=== PATIENT | male | born 1970 | race Hispanic/Latino ===

== ENCOUNTER 2020-07-26 10:51 | Inpatient (IN) | payer BC, OTHER, SELFPAY ==
[2020-07-26 12:04] LABS: ALT (SGPT) 188 U/L (8-55); AST (SGOT) 121 U/L (5-34); Albumin 3.3 g/dL (3.5-5.0); Alkaline Phosphatase 161 U/L (40-110); Anion Gap 19 mmol/L (10-20); BUN (Urea Nitrogen) 9 mg/dL (8.9-20.6); Calc. Creatinine Clearance 0 mL/min (70-130); Calcium 9.4 mg/dL (7.8-10.44); Carbon Dioxide 21 mmol/L (22-29); Chloride 98 mmol/L (98-107); Globulin 2.5 g/dL (2.4-3.5); Glucose 95 mg/dL (70-105); Lipase 48 U/L (8-78); Protein, Total 5.8 g/dL (6.0-8.3); Sodium 135 mmol/L (136-145)
[2020-07-26 12:11] LABS: #Eosinphils 0.1 10x3/uL (0.0-0.5); #Monocytes 1.1 10x3/uL (0.0-1.1); #Neutrophils 5.2 10x3/uL (1.5-8.4); %Basophils 0.4 % (0.0-2.0); %Eosinophils 1.1 % (0.0-6.0); %Monocytes 14.6 % (0.0-10.0); Hemoglobin 13.5 g/dL (13.5-17.5); Mean Corpuscular Hemoglobin 34.1 pg (27.0-33.0); Mean Corpuscular Volume 94.7 fl (81.2-95.1); Mean Platelet Volume 10.5 fl (7.4-10.4); Platelet Count 73 10x3/uL (150-450); RBC Distribution Width 17.2 % (11.5-14.5); Red Blood Cell (RBC) Count 3.96 10x6/uL (4.32-5.72); White Blood Cell (WBC) Count 7.6 10x3/uL (3.5-10.5)
[2020-07-26 12:12] LABS: Bilirubin, Total 25.6 mg/dL (0.2-1.2)
[2020-07-26 12:18] LABS: Bilirubin 6 (Negative); Blood, Urine 150 (Negative); Clarity Slightly Cloudy (Clear); Glucose, Urine (Dipstick) Normal (Negative); Ketone, Urine 15 mg/dL (Negative); Leukocyte 25 (Negative); Nitrite Positive (Negative); Protein, Urine (Dipstick) 30 mg/dl (Neg-Trace); Specific Gravity, Urine 1.015 (1.002-1.036); Urobilinogen 12 mg/dL (Less than 2); pH, Urine 6.5 (5.0-9.0)
[2020-07-26 12:32] LABS: Bacteria/HPF 3+ HPF (None Seen)
[2020-07-26 12:35] LABS: Platelet Morphology Comment Appears Decreased
[2020-07-26 12:36] LABS: RBC Morphology Normal
[2020-07-26] MEDS ORDERED: Ondansetron PF 4 MG/2 ML Vial ONE (12:49)
[2020-07-26] MEDS ORDERED: Morphine 4 MG/ML VIAL ONE (12:49)
[2020-07-26] MEDS ORDERED: cefTRIAXone\\ROCEPHIN 2 GM VIAL ONE (14:26)
[2020-07-26 15:49] LABS: Lactic Acid 1.9 mmol/L (0.5-2.2)
[2020-07-26 16:37] VITALS: BMI 40.4
[2020-07-26 16:56] LABS: INR-International Normal Ratio 1.9; PTT 33.4 sec (22.0-33.0); Prothrombin Time 20.8 sec (9.5-12.1)
[2020-07-26] MEDS ORDERED: Furosemide 40 MG/4 ML VIAL SLOW IVP SCH (17:00)
[2020-07-26] MEDS ORDERED: Potassium Chloride 10 MEQ in Premix Bag 1 BAG IVPB SCH (17:30)
[2020-07-26] MEDS: NS 0.9% w/ 20 MEQ KCL 1,000 ML/1,000 ML BAG IV SCH (17:38)
[2020-07-26] MEDS: Morphine 4 MG/ML VIAL SLOW IVP PRN (17:39)
[2020-07-26 19:45] LABS: Bilirubin, Total 25.7 mg/dL (0.2-1.2)
[2020-07-26 20:19] LABS: Bilirubin, Direct 18.9 mg/dL (0.1-0.3)
[2020-07-26] MEDS: Famotidine/PF 20 mg/2ml Vial SLOW IVP SCH (20:39)
[2020-07-27] MEDS: NS 0.9% w/ 20 MEQ KCL 1,000 ML/1,000 ML BAG IV SCH ×3 (00:57→16:36)
[2020-07-27 04:08] LABS: HBCM Index 0.07 S/CO (0-0.79); Hep A IgM AB Non-Reactive (NonReactive); Hep A IgM S/CO 0.55 S/CO (0-0.79); Hep B Surf Ag Non-Reactive S/CO (NonReactive); Hep C IgG Ab Non-Reactive (NonReactive); Hep C Index 0.39 S/CO (0-0.79); Hepatitis B Core IgM Abs Non-Reactive (NonReactive)
[2020-07-27 04:13] LABS: SARS-CoV-2 PCR by NAA Not Detected (NotDetected)
[2020-07-27 04:36] LABS: #Eosinphils 0.1 10x3/uL (0.0-0.5); #Monocytes 1.2 10x3/uL (0.0-1.1); #Neutrophils 5.7 10x3/uL (1.5-8.4); %Basophils 0.4 % (0.0-2.0); %Eosinophils 1.7 % (0.0-6.0); %Lymphocytes 11.5 % (18.0-47.0); %Monocytes 14.4 % (0.0-10.0); %Neutrophils 70.9 % (40.0-75.0); Hemoglobin 11.5 g/dL (13.5-17.5); Mean Corpuscular HGB CONC 34.8 g/dL (32.0-36.0); Mean Corpuscular Hemoglobin 33.5 pg (27.0-33.0); Mean Corpuscular Volume 96.2 fl (81.2-95.1); Mean Platelet Volume 10.3 fl (7.4-10.4); Platelet Count 68 10x3/uL (150-450); RBC Distribution Width 17.6 % (11.5-14.5); Red Blood Cell (RBC) Count 3.43 10x6/uL (4.32-5.72); White Blood Cell (WBC) Count 8.1 10x3/uL (3.5-10.5)
[2020-07-27 04:54] LABS: Iron Binding Capacity, Total 164 mcg/dL (261-462)
[2020-07-27 04:56] LABS: Iron 83 ug/dL (65-175)
[2020-07-27 04:57] LABS: Anion Gap 14 mmol/L (10-20)
[2020-07-27 05:07] LABS: ALT (SGPT) 144 U/L (8-55); AST (SGOT) 93 U/L (5-34); Albumin 2.7 g/dL (3.5-5.0); Alkaline Phosphatase 135 U/L (40-110); BUN (Urea Nitrogen) 9 mg/dL (8.9-20.6); Bilirubin, Total 23.7 mg/dL (0.2-1.2); Calc. Creatinine Clearance 205 mL/min (70-130); Calcium 7.7 mg/dL (7.8-10.44); Carbon Dioxide 20 mmol/L (22-29); Chloride 103 mmol/L (98-107); Glucose 111 mg/dL (70-105); Potassium 3.1 mmol/L (3.5-5.1); Protein, Total 4.7 g/dL (6.0-8.3); Sodium 134 mmol/L (136-145)
[2020-07-27 05:40] LABS: INR-International Normal Ratio 1.9
[2020-07-27] MEDS: Famotidine/PF 20 mg/2ml Vial SLOW IVP SCH ×2 (08:14→20:06)
[2020-07-27] MEDS: Ondansetron PF 4 MG/2 ML Vial IVP PRN ×2 (08:14→16:37)
[2020-07-27] MEDS ORDERED: Potassium Chloride 20 MEQ TAB PO SCH (08:30)
[2020-07-27] MEDS: cefTRIAXone\\ROCEPHIN 1 GM in Sodium Chloride 0.9% 100 ML IVPB SCH (14:23)
[2020-07-27] MEDS ORDERED: prednisoLONE 15 MG/5 ML UDCUP ONE (20:56)
[2020-07-27] MEDS ORDERED: Pseudoephedrine HCl 30 MG TAB PO SCH (21:00)
[2020-07-27] MEDS: prednisoLONE 15 MG/5 ML UDCUP PO SCH (21:01)
[2020-07-28] MEDS: NS 0.9% w/ 20 MEQ KCL 1,000 ML/1,000 ML BAG IV SCH ×3 (00:44→17:41)
[2020-07-28] MEDS ORDERED: Famotidine/PF 20 mg/2ml Vial ONE (09:04)
[2020-07-28] MEDS: Ondansetron PF 4 MG/2 ML Vial IVP PRN ×3 (09:05→17:42)
[2020-07-28] MEDS: Famotidine/PF 20 mg/2ml Vial SLOW IVP SCH ×2 (09:06→20:03)
[2020-07-28] MEDS ORDERED: Polyethylene Glycol 3350 17 GM Packet PO SCH (10:00)
[2020-07-28] MEDS ORDERED: Senokot S 8.6-50 MG TAB PO SCH (10:00)
[2020-07-28] MEDS: cefTRIAXone\\ROCEPHIN 1 GM in Sodium Chloride 0.9% 100 ML IVPB SCH (15:29)
[2020-07-28 15:37] LABS: ANA Symphony (Qualitative) Negative (Negative); ANA Symphony (Quantitative) 0.1 Ratio (< 0.7 Negative); EliA Vaculitis New Method **** NEW METHOD ****; Mitochondrial Ab 0.7 U/mL (<4 Negative); dsDNA IgG Antibody Less than 0.5 IU/mL (<10 Negative)
[2020-07-28] MEDS: Morphine 4 MG/ML VIAL SLOW IVP PRN (18:02)
[2020-07-28] MEDS: prednisoLONE 15 MG/5 ML UDCUP PO SCH (20:04)
[2020-07-28] MEDS: Senokot S 8.6-50 MG TAB PO SCH (20:04)
[2020-07-29] MEDS: NS 0.9% w/ 20 MEQ KCL 1,000 ML/1,000 ML BAG IV SCH ×2 (02:29→10:56)
[2020-07-29 05:40] LABS: #Monocytes 0.5 10x3/uL (0.0-1.1); #Neutrophils 4.5 10x3/uL (1.5-8.4); %Basophils 0.3 % (0.0-2.0); %Lymphocytes 11.7 % (18.0-47.0); %Neutrophils 77.9 % (40.0-75.0); Hemoglobin 11.7 g/dL (13.5-17.5); Mean Corpuscular HGB CONC 35.5 g/dL (32.0-36.0); Mean Corpuscular Hemoglobin 33.7 pg (27.0-33.0); Mean Corpuscular Volume 95.1 fl (81.2-95.1); Mean Platelet Volume 10.5 fl (7.4-10.4); Platelet Count 78 10x3/uL (150-450); RBC Distribution Width 17.8 % (11.5-14.5); Red Blood Cell (RBC) Count 3.47 10x6/uL (4.32-5.72); White Blood Cell (WBC) Count 5.7 10x3/uL (3.5-10.5)
[2020-07-29 05:54] LABS: ALT (SGPT) 112 U/L (8-55); AST (SGOT) 81 U/L (5-34); Albumin 2.6 g/dL (3.5-5.0); Alkaline Phosphatase 170 U/L (40-110); Anion Gap 13 mmol/L (10-20); BUN (Urea Nitrogen) 8 mg/dL (8.9-20.6); Calc. Creatinine Clearance 218 mL/min (70-130); Calcium 7.8 mg/dL (7.8-10.44); Carbon Dioxide 18 mmol/L (22-29); Chloride 108 mmol/L (98-107); Globulin 1.9 g/dL (2.4-3.5); Glucose 120 mg/dL (70-105); Potassium 4.3 mmol/L (3.5-5.1); Protein, Total 4.5 g/dL (6.0-8.3); Sodium 135 mmol/L (136-145)
[2020-07-29 06:01] LABS: INR-International Normal Ratio 1.7; Prothrombin Time 18.7 sec (9.5-12.1)
[2020-07-29 06:02] LABS: Bilirubin, Total 26.1 mg/dL (0.2-1.2)
[2020-07-29] MEDS: Polyethylene Glycol 3350 17 GM Packet PO SCH (08:49)
[2020-07-29] MEDS: Ondansetron PF 4 MG/2 ML Vial IVP PRN (08:50)
[2020-07-29] MEDS: Famotidine/PF 20 mg/2ml Vial SLOW IVP SCH (08:50)
[2020-07-29] MEDS: Senokot S 8.6-50 MG TAB PO SCH ×2 (08:50→21:07)
[2020-07-29] MEDS ORDERED: Furosemide 40 MG/4 ML VIAL SLOW IVP SCH (10:15)
[2020-07-29] MEDS: Furosemide 40 MG/4 ML VIAL SLOW IVP SCH ×2 (13:35→13:43)
[2020-07-29] MEDS ORDERED: Loratadine 10 MG TAB PO SCH (16:15)
[2020-07-29] MEDS: Famotidine 20 MG TAB PO SCH (21:07)
[2020-07-29] MEDS: Enoxaparin Sodium 40 MG/0.4 ML SYRINGE SC SCH ×2 (21:07→21:11)
[2020-07-29] MEDS ORDERED: Melatonin 3 MG TAB PO SCH (21:30)
[2020-07-29] MEDS ORDERED: prednisoLONE 15 MG/5 ML UDCUP ONE (21:41)
[2020-07-29] MEDS: prednisoLONE 15 MG/5 ML UDCUP PO SCH (21:53)
[2020-07-30 05:27] LABS: Anion Gap 14 mmol/L (10-20); Globulin 1.9 g/dL (2.4-3.5)
[2020-07-30 05:35] LABS: Bilirubin, Total 28.2 mg/dL (0.2-1.2)
[2020-07-30 05:36] LABS: ALT (SGPT) 102 U/L (8-55); AST (SGOT) 79 U/L (5-34); Albumin 2.6 g/dL (3.5-5.0); Alkaline Phosphatase 155 U/L (40-110); BUN (Urea Nitrogen) 11 mg/dL (8.9-20.6); Calc. Creatinine Clearance 205 mL/min (70-130); Carbon Dioxide 20 mmol/L (22-29); Chloride 105 mmol/L (98-107); Glucose 114 mg/dL (70-105); Potassium 3.6 mmol/L (3.5-5.1); Protein, Total 4.5 g/dL (6.0-8.3); Sodium 135 mmol/L (136-145)
[2020-07-30] MEDS ORDERED: Loratadine 10 MG TAB PO SCH ×2 (09:00)
[2020-07-30] MEDS: Senokot S 8.6-50 MG TAB PO SCH (09:57)
[2020-07-30] MEDS: Polyethylene Glycol 3350 17 GM Packet PO SCH (10:01)
[2020-07-30] MEDS: Famotidine 20 MG TAB PO SCH (10:01)
[2020-07-30] MEDS: Ondansetron PF 4 MG/2 ML Vial IVP PRN (11:59)
[2020-07-30 12:22] VITALS: BP 123/69; TEMP 97.6
[2020-07-30] MEDS: Furosemide 40 MG/4 ML VIAL SLOW IVP SCH (14:19)
== END 2020-07-30 15:55 | disposition home or self-care (01) | DRG 433 ==
LOC: CSHERS 10:51 → CSHTELE 15:35
PROVIDERS: ADMIT Emergency Medicine; ATTEND Hospitalist
DX: K70.10 Alcoholic hepatitis without ascites (principal); Z68.41 Body mass index [BMI] 40.0-44.9, adult; J98.11 Atelectasis; K76.6 Portal hypertension; I85.10 Secondary esophageal varices without bleeding; R18.8 Other ascites; N30.01 Acute cystitis with hematuria; K74.60 Unspecified cirrhosis of liver; E66.9 Obesity, unspecified; E03.9 Hypothyroidism, unspecified; I10 Essential (primary) hypertension; F10.20 Alcohol dependence, uncomplicated; K80.80 Other cholelithiasis without obstruction; K70.0 Alcoholic fatty liver; R16.1 Splenomegaly, not elsewhere classified; E87.6 Hypokalemia; D69.6 Thrombocytopenia, unspecified; K21.9 Gastro-esophageal reflux disease without esophagitis; Z20.822 Contact with and (suspected) exposure to COVID-19
CPT/HCPCS: 36415; 74177; 76705; 80053; 80074; 81003; 81015; 82103; 82105; 82140; 82247; 82390; 82728; 83516; 83540; 83550; 83605; 83690; 85025; 85610; 85730; 86038; 86225; 87040; 87086; 87635; 94760; 96365; 96375; J0696; J1650; J1940; J2270; J2405; J3480; J3490; J7510; S0028; U0003; U0005

== ENCOUNTER 2020-08-11 14:39 | Inpatient (IN) | payer OTHER, SELFPAY ==
[2020-08-11 15:18] LABS: ALT (SGPT) 143 U/L (8-55); AST (SGOT) 163 U/L (5-34); Albumin 2.2 g/dL (3.5-5.0); Alkaline Phosphatase 370 U/L (40-110); Anion Gap 24 mmol/L (10-20); BUN (Urea Nitrogen) 63 mg/dL (8.9-20.6); Calc. Creatinine Clearance 0 mL/min (70-130); Calcium 8.6 mg/dL (7.8-10.44); Carbon Dioxide 15 mmol/L (22-29); Chloride 93 mmol/L (98-107); Globulin 1.9 g/dL (2.4-3.5); Glucose 116 mg/dL (70-105); Lipase 54 U/L (8-78); Potassium 5.4 mmol/L (3.5-5.1); Protein, Total 4.1 g/dL (6.0-8.3); Sodium 127 mmol/L (136-145)
[2020-08-11 15:27] LABS: Bilirubin, Total 31.2 mg/dL (0.2-1.2)
[2020-08-11 15:29] LABS: Hemoglobin 9.4 g/dL (13.5-17.5); Mean Corpuscular HGB CONC 36.6 g/dL (32.0-36.0); Mean Corpuscular Hemoglobin 33.7 pg (27.0-33.0); Mean Corpuscular Volume 92.1 fl (81.2-95.1); Mean Platelet Volume 9.9 fl (7.4-10.4); Platelet Count 191 10x3/uL (150-450); RBC Distribution Width 18.6 % (11.5-14.5); Red Blood Cell (RBC) Count 2.79 10x6/uL (4.32-5.72); White Blood Cell (WBC) Count 29.5 10x3/uL (3.5-10.5)
[2020-08-11] MEDS ORDERED: Ondansetron ODT 4 MG TAB PO PRN (16:16)
[2020-08-11] MEDS ORDERED: cefTRIAXone\\ROCEPHIN 2 GM VIAL ONE ×2 (16:23→16:24)
[2020-08-11 16:25] LABS: INR-International Normal Ratio 1.6; PTT 29.8 sec (22.0-33.0); Prothrombin Time 17.1 sec (9.5-12.1)
[2020-08-11 16:30] LABS: MDiff Complete? YES
[2020-08-11] MEDS ORDERED: Albumin 25% 25 GM/100 ML BOT IVPB ONE (16:30)
[2020-08-11 17:00] LABS: Lymphocytes 9 % (21-51); Metamyelocyte 1 % (0-0); Monocytes 5 % (0-10); Neutrophil 85 % (42-75); Nucleated RBC 1 % (0)
[2020-08-11 17:04] LABS: Platelet Morphology Comment Appears Adequate
[2020-08-11 17:08] LABS: Base Excess (BEa) -8.2 mEq/L (-2.0 to +3.0); Calcium, Ionized (arterial) 1.08 mmol/L (1.12-1.30); Carboxyhemoglobin (COHb) 1.7 gm% (0.0-3.0); Hemoglobin (Hb) 9.1 g/dL (14.0-18.0); O2 Tension (PaO2), arterial 108.1 mmHg (80.0-100.0); Puncture Site RBA; pH, Arterial 7.46 (7.35-7.45)
[2020-08-11] MEDS ORDERED: Octreotide Acetate 50 MCG/ML AMP ONE (17:11)
[2020-08-11] MEDS ORDERED: Octreotide Acetate 100 MCG/ML VIAL ONE (17:12)
[2020-08-11] MEDS ORDERED: Pantoprazole 40 MG VIAL ONE (17:13)
[2020-08-11] MEDS ORDERED: Octreotide Acetate 1,250 MCG in Sodium Chloride 0.9% 250 ML 250 ML IVPB SCH (17:30)
[2020-08-11] MEDS ORDERED: Pantoprazole 80 MG, Admixture Fee 1 EACH in Sodium Chloride 0.9% 100 ML IVPB SCH (17:30)
[2020-08-11] MEDS ORDERED: Succinylcholine 200 MG/10 ml SYRINGE FS ONE (17:36)
[2020-08-11] MEDS ORDERED: PROPOFOL 20 ML ONE (17:36)
[2020-08-11] MEDS ORDERED: PHENYLEPHRINE-NS 100 MCG/ML 10 ML SYRINGE ONE (17:39)
[2020-08-11] MEDS ORDERED: ePHEDrine 50 MG/ML VIAL ONE (18:03)
[2020-08-11 18:38] LABS: SARS-CoV-2 NAA Rapid Test Not Detected (NotDetected)
[2020-08-11 20:10] LABS: Hemoglobin 8.2 g/dL (13.5-17.5)
[2020-08-11] MEDS ORDERED: Famotidine 20 MG TAB PO SCH (21:00)
[2020-08-11] MEDS ORDERED: Albumin 25% 25 GM/100 ML BOT IVPB SCH (22:00)
[2020-08-11] MEDS ORDERED: Piperacillin/Tazobactam 3.375 GM in Sodium Chloride 0.9% 100 ML IVPB SCH (22:45)
[2020-08-12 00:31] LABS: Hemoglobin 7.1 g/dL (13.5-17.5)
[2020-08-12] MEDS: Pantoprazole 80 MG in Sodium Chloride 0.9% 100 ML IVPB SCH ×2 (00:37→14:18)
[2020-08-12] MEDS: Vancomycin HCl 750 MG in Sodium Chloride 0.9% 250 ML 250 ML IVPB SCH ×3 (00:37→23:55)
[2020-08-12 02:20] LABS: Actual Bicarbonate (HCO3a) 14.7 mEq/L (22-28); Base Excess (BEa) -10.7 mEq/L (-2.0 to +3.0); CO2 Tension 30.8 mmHg (35.0-45.0); Calcium, Ionized (arterial) 1.01 mmol/L (1.12-1.30); Hemoglobin (Hb) 6.9 g/dL (14.0-18.0); O2 Tension (PaO2), arterial 55.4 mmHg (80.0-100.0); Potassium - ABG Lab 6.1 mmol/L (3.70-5.30); Puncture Site RRA
[2020-08-12] MEDS: Piperacillin/Tazobactam 3.375 GM in Sodium Chloride 0.9% 100 ML IVPB SCH ×3 (03:15→19:52)
[2020-08-12] MEDS ORDERED: Insulin Regular 300 UNITS/3 ML VIAL IVP SCH (03:30)
[2020-08-12] MEDS ORDERED: Dextrose 50% Abboject 50 ML SYRINGE SLOW IVP SCH (03:30)
[2020-08-12 03:51] LABS: Hemoglobin 6.5 g/dL (13.5-17.5); Mean Corpuscular HGB CONC 34.8 g/dL (32.0-36.0); Mean Corpuscular Hemoglobin 32.7 pg (27.0-33.0); Mean Platelet Volume 9.9 fl (7.4-10.4); Platelet Count 152 10x3/uL (150-450); RBC Distribution Width 18.7 % (11.5-14.5); Red Blood Cell (RBC) Count 1.99 10x6/uL (4.32-5.72); White Blood Cell (WBC) Count 22.7 10x3/uL (3.5-10.5)
[2020-08-12 03:59] LABS: Anion Gap 27 mmol/L (10-20); Globulin 1.4 g/dL (2.4-3.5)
[2020-08-12 04:01] LABS: Albumin 2.9 g/dL (3.5-5.0); BUN (Urea Nitrogen) 68 mg/dL (8.9-20.6); Calc. Creatinine Clearance 53 mL/min (70-130); Calcium 8.4 mg/dL (7.8-10.44); Carbon Dioxide 13 mmol/L (22-29); Chloride 93 mmol/L (98-107); Glucose 33 mg/dL (70-105); Potassium 6.4 mmol/L (3.5-5.1); Protein, Total 4.3 g/dL (6.0-8.3); Sodium 127 mmol/L (136-145)
[2020-08-12 04:02] LABS: ALT (SGPT) 254 U/L (8-55); AST (SGOT) 544 U/L (5-34); Alkaline Phosphatase 247 U/L (40-110); Magnesium 2.8 mg/dL (1.6-2.6)
[2020-08-12 04:05] LABS: INR-International Normal Ratio 1.8; PTT 37.1 sec (22.0-33.0); Prothrombin Time 19.1 sec (9.5-12.1)
[2020-08-12 04:07] LABS: Bilirubin, Total 26.2 mg/dL (0.2-1.2)
[2020-08-12] MEDS ORDERED: Calcium Gluconate 4.6 MEQ in Sodium Chloride 0.9% 100 ML IVPB SCH (04:30)
[2020-08-12] MEDS ORDERED: Albuterol Sulfate 2.5 mg/3 ml Neb NEB SCH ×2 (04:30→09:45)
[2020-08-12 04:34] LABS: Band 1 % (5-11); Lymphocytes 5 % (21-51); Metamyelocyte 2 % (0-0); Monocytes 2 % (0-10); Myelocyte 2 % (0-0); Nucleated RBC 1 % (0)
[2020-08-12] MEDS: Norepinephrine 8 MG/0.9% NS 250 ML IVPB SCH ×3 (04:35→21:45)
[2020-08-12 04:36] LABS: Anisocytosis MODERATE=16-30 cells (100X) (0-5/hpf); Neutrophil 88 % (42-75)
[2020-08-12 04:37] LABS: Elliptocytes SLIGHT = 2-5 cells (100X) (0-1/hpf); Hypochromia MODERATE=16-30 cells (100X) (0-5/hpf); Macrocytosis MODERATE=16-30 cells (100X) (0-5/hpf); Microcytosis SLIGHT = 6-15 cells (100X) (0-5/hpf); Platelet Morphology Comment Appears Adequate; Polychromasia SLIGHT = 2-3 cells (100X) (0-2/hpf); Target Cells MODERATE= 6-15 cells (100X) (0-1/hpf)
[2020-08-12] MEDS ORDERED: Furosemide 40 MG/4 ML VIAL SLOW IVP SCH (05:45)
[2020-08-12] MEDS: Dextrose 50% Abboject 50 ML SYRINGE SLOW IVP PRN ×2 (05:48→09:00)
[2020-08-12] MEDS ORDERED: Rocuronium Bromide 50 MG/5 ML VIAL IVP SCH (08:05)
[2020-08-12] MEDS ORDERED: Rocuronium Bromide 10 MG/ML (10ML VIAL) ONE (08:10)
[2020-08-12] MEDS ORDERED: Albumin 25% 25 GM/100 ML BOT IVPB SCH ×2 (08:50→09:20)
[2020-08-12 08:53] LABS: Actual Bicarbonate (HCO3a) 11.4 mEq/L (22-28); Base Excess (BEa) -16.7 mEq/L (-2.0 to +3.0); CO2 Tension 35.5 mmHg (35.0-45.0); Calcium, Ionized (arterial) 1.01 mmol/L (1.12-1.30); Carboxyhemoglobin (COHb) 1.9 gm% (0.0-3.0); O2 Tension (PaO2), arterial 74.5 mmHg (80.0-100.0); Potassium - ABG Lab 8.3 mmol/L (3.70-5.30); pH, Arterial 7.12 (7.35-7.45)
[2020-08-12 08:55] LABS: ALV-art Gradient 451.525 mmHg (0-20)
[2020-08-12 08:59] LABS: Hemoglobin 8.6 g/dL (13.5-17.5)
[2020-08-12] MEDS ORDERED: Phytonadione 10 MG in Sodium Chloride 0.9% 50 ML IVPB SCH (09:00)
[2020-08-12] MEDS ORDERED: Vancomycin 1 GM in Premix Bag 1 BAG IVPB SCH (09:00)
[2020-08-12] MEDS ORDERED: Lactulose 10 GM/15 ML Oral Solution PR SCH (09:00)
[2020-08-12 09:02] LABS: Potassium 6.2 mmol/L (3.5-5.1)
[2020-08-12] MEDS ORDERED: Albuterol Sulfate 2.5 mg/3 ml Neb ONE (09:08)
[2020-08-12] MEDS: Dextrose 10% in Water 1,000 ML IV SCH (09:12)
[2020-08-12] MEDS ORDERED: Sodium Chloride 0.9% 50 ML ONE (09:22)
[2020-08-12] MEDS ORDERED: Albumin 25% 25 GM/100 ML BOT IVPB PRN (11:05)
[2020-08-12 12:08] LABS: Hep B Surf Ag Non-Reactive S/CO (NonReactive)
[2020-08-12 12:09] LABS: Actual Bicarbonate (HCO3a) 14.3 mEq/L (22-28); Base Excess (BEa) -13.8 mEq/L (-2.0 to +3.0); CO2 Tension 42.9 mmHg (35.0-45.0); Calcium, Ionized (arterial) 1.05 mmol/L (1.12-1.30); Carboxyhemoglobin (COHb) 2.1 gm% (0.0-3.0); Hemoglobin (Hb) 8.8 g/dL (14.0-18.0); O2 Tension (PaO2), arterial 52.9 mmHg (80.0-100.0); Potassium - ABG Lab 5.1 mmol/L (3.70-5.30); pH, Arterial 7.14 (7.35-7.45)
[2020-08-12 12:11] LABS: HBSAg Index 0.16 S/CO (0-0.99)
[2020-08-12 12:14] LABS: ALV-art Gradient 606.475 mmHg (0-20)
[2020-08-12] MEDS ORDERED: Calcium Gluconate 4.6 MEQ in Sodium Chloride 0.9% 100 ML IVPB ONE (13:32)
[2020-08-12] MEDS: Hydrocortisone Sod Succ/PF 100 mg/2 ml Vial IVP SCH ×2 (13:36→16:55)
[2020-08-12 16:50] LABS: Anion Gap 28 mmol/L (10-20); BUN (Urea Nitrogen) 61 mg/dL (8.9-20.6); Calc. Creatinine Clearance 49 mL/min (70-130); Calcium 8.7 mg/dL (7.8-10.44); Carbon Dioxide 13 mmol/L (22-29); Chloride 95 mmol/L (98-107); Glucose 81 mg/dL (70-105); Potassium 5.7 mmol/L (3.5-5.1); Sodium 130 mmol/L (136-145)
[2020-08-12 18:20] LABS: Hep B Core Total Ab Non-Reactive (NonReactive); Hep B Core Total Index 0.05 S/CO (0-0.79); Hep C IgG Ab Non-Reactive (NonReactive); Hep C Index 0.14 S/CO (0-0.79)
[2020-08-12 18:35] LABS: HBSAB Concentration 19.89 mIU/mL; Hep B Surf AB Reactive (NonReactive)
[2020-08-12 19:36] LABS: White Blood Cell (WBC) Count 32.6 10x3/uL (3.5-10.5)
[2020-08-12 19:39] LABS: Hemoglobin 8.6 g/dL (13.5-17.5); Mean Corpuscular HGB CONC 35.1 g/dL (32.0-36.0); Mean Corpuscular Hemoglobin 33.1 pg (27.0-33.0); Mean Corpuscular Volume 94.2 fl (81.2-95.1); Mean Platelet Volume 10.2 fl (7.4-10.4); Platelet Count 138 10x3/uL (150-450)
[2020-08-12 19:56] LABS: Band 18 % (5-11); Lymphocytes 2 % (21-51); Metamyelocyte 2 % (0-0); Monocytes 7 % (0-10); Myelocyte 1 % (0-0); Neutrophil 70 % (42-75); Nucleated RBC 2 % (0)
[2020-08-12 19:58] LABS: MDiff Complete? YES; Manual Diff?? YES
[2020-08-12 19:59] LABS: Platelet Morphology Comment Appears Adequate
[2020-08-12 20:00] LABS: Anisocytosis MODERATE=16-30 cells (100X) (0-5/hpf); Hypochromia SLIGHT = 6-15 cells (100X) (0-5/hpf); Macrocytosis SLIGHT = 6-15 cells (100X) (0-5/hpf); Microcytosis SLIGHT = 6-15 cells (100X) (0-5/hpf); Polychromasia SLIGHT = 2-3 cells (100X) (0-2/hpf); Target Cells SLIGHT = 2-5 cells (100X) (0-1/hpf)
[2020-08-12 20:01] LABS: Elliptocytes SLIGHT = 2-5 cells (100X) (0-1/hpf)
[2020-08-12] MEDS: Octreotide Acetate 1,250 MCG in Sodium Chloride 0.9% 250 ML 250 ML IVPB SCH (23:30)
[2020-08-13] MEDS: Pantoprazole 80 MG in Sodium Chloride 0.9% 100 ML IVPB SCH ×3 (01:00→22:00)
[2020-08-13] MEDS: Vancomycin HCl 750 MG in Sodium Chloride 0.9% 250 ML 250 ML IVPB SCH ×2 (01:15→22:46)
[2020-08-13] MEDS: Hydrocortisone Sod Succ/PF 100 mg/2 ml Vial IVP SCH ×4 (01:15→17:51)
[2020-08-13] MEDS ORDERED: Lorazepam 2 MG/ML VIAL SLOW IVP SCH (03:00)
[2020-08-13] MEDS: Piperacillin/Tazobactam 3.375 GM in Sodium Chloride 0.9% 100 ML IVPB SCH ×3 (03:01→18:06)
[2020-08-13] MEDS: Norepinephrine 8 MG/0.9% NS 250 ML IVPB SCH ×2 (03:37→17:51)
[2020-08-13] MEDS: Dextrose 10% in Water 1,000 ML IV SCH (03:38)
[2020-08-13 04:04] LABS: Hemoglobin 8.7 g/dL (13.5-17.5); Mean Corpuscular HGB CONC 36.1 g/dL (32.0-36.0); Mean Corpuscular Hemoglobin 32.1 pg (27.0-33.0); Mean Corpuscular Volume 88.9 fl (81.2-95.1); Mean Platelet Volume 10.5 fl (7.4-10.4); Platelet Count 82 10x3/uL (150-450); RBC Distribution Width 17.1 % (11.5-14.5); Red Blood Cell (RBC) Count 2.71 10x6/uL (4.32-5.72); White Blood Cell (WBC) Count 24.9 10x3/uL (3.5-10.5)
[2020-08-13 04:15] LABS: Anion Gap 25 mmol/L (10-20); BUN (Urea Nitrogen) 65 mg/dL (8.9-20.6); Calc. Creatinine Clearance 46 mL/min (70-130); Calcium 8.5 mg/dL (7.8-10.44); Carbon Dioxide 14 mmol/L (22-29); Chloride 97 mmol/L (98-107); Glucose 118 mg/dL (70-105); Potassium 5.2 mmol/L (3.5-5.1); Sodium 131 mmol/L (136-145)
[2020-08-13 04:57] LABS: Band 12 % (5-11); Lymphocytes 1 % (21-51); Monocytes 1 % (0-10); Myelocyte 1 % (0-0); Nucleated RBC 1 % (0)
[2020-08-13 04:58] LABS: Neutrophil 85 % (42-75)
[2020-08-13 04:59] LABS: MDiff Complete? YES; Platelet Morphology Comment Appears Decreased
[2020-08-13 05:00] LABS: Dohle Bodies SLIGHT; Toxic Granulation SLIGHT
[2020-08-13 05:01] LABS: Anisocytosis SLIGHT = 6-15 cells (100X) (0-5/hpf); Hypochromia MODERATE=16-30 cells (100X) (0-5/hpf); Macrocytosis SLIGHT = 6-15 cells (100X) (0-5/hpf); Microcytosis SLIGHT = 6-15 cells (100X) (0-5/hpf); Polychromasia SLIGHT = 2-3 cells (100X) (0-2/hpf); Target Cells SLIGHT = 2-5 cells (100X) (0-1/hpf)
[2020-08-13 07:40] LABS: Actual Bicarbonate (HCO3a) 17.3 mEq/L (22-28); Base Excess (BEa) -5.2 mEq/L (-2.0 to +3.0); CO2 Tension 23.7 mmHg (35.0-45.0); Carboxyhemoglobin (COHb) 0.6 gm% (0.0-3.0); Hemoglobin (Hb) 8.9 g/dL (14.0-18.0); O2 Tension (PaO2), arterial 309.5 mmHg (80.0-100.0); Potassium - ABG Lab 4.7 mmol/L (3.70-5.30); pH, Arterial 7.48 (7.35-7.45)
[2020-08-13 07:45] LABS: ALV-art Gradient 373.875 mmHg (0-20)
[2020-08-13] MEDS ORDERED: Sodium Bicarbonate 150 MEQ in Dextrose 5% in Water 1,000 ML IV SCH (10:15)
[2020-08-13 16:48] LABS: Anion Gap 21 mmol/L (10-20); BUN (Urea Nitrogen) 64 mg/dL (8.9-20.6); Calc. Creatinine Clearance 53 mL/min (70-130); Calcium 8.4 mg/dL (7.8-10.44); Carbon Dioxide 18 mmol/L (22-29); Chloride 98 mmol/L (98-107); Glucose 151 mg/dL (70-105)
[2020-08-13 16:59] LABS: Sodium 133 mmol/L (136-145)
[2020-08-13] MEDS: Octreotide Acetate 1,250 MCG in Sodium Chloride 0.9% 250 ML 250 ML IVPB SCH (22:00)
[2020-08-13 22:28] LABS: Vancomycin, Trough 16.2 ug/mL
[2020-08-14] MEDS: Vancomycin HCl 750 MG in Sodium Chloride 0.9% 250 ML 250 ML IVPB SCH (00:19)
[2020-08-14] MEDS: Hydrocortisone Sod Succ/PF 100 mg/2 ml Vial IVP SCH ×4 (00:20→18:03)
[2020-08-14] MEDS: Piperacillin/Tazobactam 3.375 GM in Sodium Chloride 0.9% 100 ML IVPB SCH ×3 (02:34→18:04)
[2020-08-14 04:57] LABS: #Monocytes 0.7 10x3/uL (0.0-1.1); #Neutrophils 11.9 10x3/uL (1.5-8.4); %Basophils 0.1 % (0.0-2.0); %Eosinophils 0.1 % (0.0-6.0); %Lymphocytes 5.4 % (18.0-47.0); %Monocytes 5.3 % (0.0-10.0); %Neutrophils 86.9 % (40.0-75.0); Hemoglobin 8.3 g/dL (13.5-17.5); Mean Corpuscular HGB CONC 36.7 g/dL (32.0-36.0); Mean Corpuscular Hemoglobin 32.3 pg (27.0-33.0); Mean Corpuscular Volume 87.9 fl (81.2-95.1); Mean Platelet Volume 10.4 fl (7.4-10.4); RBC Distribution Width 16.9 % (11.5-14.5); Red Blood Cell (RBC) Count 2.57 10x6/uL (4.32-5.72); White Blood Cell (WBC) Count 13.6 10x3/uL (3.5-10.5)
[2020-08-14 04:58] LABS: Platelet Count 53 10x3/uL (150-450)
[2020-08-14 04:59] LABS: Large Platelets SLIGHT; Platelet Morphology Comment Appears Decreased; Target Cells SLIGHT = 2-5 cells (100X) (0-1/hpf)
[2020-08-14 07:24] LABS: Actual Bicarbonate (HCO3a) 24.9 mEq/L (22-28); Base Excess (BEa) 1.4 mEq/L (-2.0 to +3.0); CO2 Tension 34.1 mmHg (35.0-45.0); Carboxyhemoglobin (COHb) 1.7 gm% (0.0-3.0); O2 Tension (PaO2), arterial 193.1 mmHg (80.0-100.0); Potassium - ABG Lab 3.1 mmol/L (3.70-5.30); pH, Arterial 7.48 (7.35-7.45)
[2020-08-14 07:25] LABS: ALV-art Gradient 192.075 mmHg (0-20)
[2020-08-14] MEDS: Sodium Chloride 0.9% 1,000 ML IV SCH (10:00)
[2020-08-14 10:20] LABS: Anion Gap 17 mmol/L (10-20); BUN (Urea Nitrogen) 63 mg/dL (8.9-20.6); Calc. Creatinine Clearance 66 mL/min (70-130); Carbon Dioxide 22 mmol/L (22-29); Chloride 101 mmol/L (98-107); Glucose 154 mg/dL (70-105); Potassium 3.5 mmol/L (3.5-5.1); Sodium 136 mmol/L (136-145)
[2020-08-14] MEDS: Pantoprazole 80 MG in Sodium Chloride 0.9% 100 ML IVPB SCH (12:35)
[2020-08-14] MEDS: Multivitamins, Adult 10 ML, Folic Acid 1 MG, Thiamine HCl 100 MG, Admixture Fee 1 EACH ... IV SCH (17:06)
[2020-08-14] MEDS: Lactulose 10 GM/15 ML Oral Solution PR SCH (21:30)
[2020-08-14] MEDS ORDERED: ADMIXTURE FEE IVPB SCH (23:00)
[2020-08-14] MEDS ORDERED: STERILE WATER IVPB SCH (23:00)
[2020-08-14] MEDS ORDERED: VANCOMYCIN IVPB SCH (23:00)
[2020-08-14] MEDS ORDERED: [UNRECOGNIZED DRUG - OTHER] IVPB SCH (23:00)
[2020-08-14] MEDS ORDERED: Vancomycin HCl 750 MG in Sodium Chloride 0.9% 250 ML 250 ML IVPB SCH (23:59)
[2020-08-15] MEDS: Hydrocortisone Sod Succ/PF 100 mg/2 ml Vial IVP SCH ×4 (00:15→18:46)
[2020-08-15] MEDS ORDERED: Octreotide Acetate 500 MCG/ML VIAL ONE ×2 (00:31→22:29)
[2020-08-15] MEDS ORDERED: Vancomycin HCl 750 MG in Sodium Chloride 0.9% 250 ML 250 ML IVPB SCH (01:00)
[2020-08-15] MEDS: Pantoprazole 80 MG in Sodium Chloride 0.9% 100 ML IVPB SCH ×3 (01:05→22:34)
[2020-08-15] MEDS: Piperacillin/Tazobactam 3.375 GM in Sodium Chloride 0.9% 100 ML IVPB SCH ×3 (03:10→22:08)
[2020-08-15] MEDS: Lactulose 10 GM/15 ML Oral Solution PR SCH ×4 (03:20→22:04)
[2020-08-15] MEDS: Octreotide Acetate 1,250 MCG in Sodium Chloride 0.9% 250 ML 250 ML IVPB SCH (03:56)
[2020-08-15 04:10] LABS: #Monocytes 1.1 10x3/uL (0.0-1.1); #Neutrophils 11.7 10x3/uL (1.5-8.4); %Basophils 0.1 % (0.0-2.0); %Eosinophils 0.1 % (0.0-6.0); %Lymphocytes 5.7 % (18.0-47.0); %Neutrophils 83.9 % (40.0-75.0); Hemoglobin 8.3 g/dL (13.5-17.5); Mean Corpuscular HGB CONC 35.6 g/dL (32.0-36.0); Mean Corpuscular Hemoglobin 31.7 pg (27.0-33.0); Mean Corpuscular Volume 88.9 fl (81.2-95.1); Mean Platelet Volume 10.9 fl (7.4-10.4); Platelet Count 55 10x3/uL (150-450); RBC Distribution Width 17.2 % (11.5-14.5); Red Blood Cell (RBC) Count 2.62 10x6/uL (4.32-5.72)
[2020-08-15 04:17] LABS: ALT (SGPT) 958 U/L (8-55); AST (SGOT) 1033 U/L (5-34); Albumin 2.4 g/dL (3.5-5.0); Anion Gap 16 mmol/L (10-20); BUN (Urea Nitrogen) 62 mg/dL (8.9-20.6); Calc. Creatinine Clearance 65 mL/min (70-130); Carbon Dioxide 23 mmol/L (22-29); Chloride 103 mmol/L (98-107); Globulin 0.9 g/dL (2.4-3.5); Glucose 168 mg/dL (70-105); Magnesium 2.5 mg/dL (1.6-2.6); Phosphorus 3.8 mg/dL (2.3-4.7); Protein, Total 3.3 g/dL (6.0-8.3); Sodium 139 mmol/L (136-145)
[2020-08-15 04:20] LABS: Alkaline Phosphatase 231 U/L (40-110); Bilirubin, Total Greater than 25.0 mg/dL (0.2-1.2); Potassium 2.8 mmol/L (3.5-5.1)
[2020-08-15] MEDS: Potassium Chloride 20 MEQ in Premix Bag 1 BAG IVPB SCH ×4 (05:03→14:20)
[2020-08-15] MEDS: Sodium Chloride 0.9% 1,000 ML IV SCH (11:08)
[2020-08-15] MEDS: Multivitamins, Adult 10 ML, Folic Acid 1 MG, Thiamine HCl 100 MG, Admixture Fee 1 EACH ... IV SCH (17:30)
[2020-08-15] MEDS ORDERED: Fentanyl 100 MCG/2 ML VIAL SLOW IVP PRN (17:33)
[2020-08-15] MEDS: Dexmedetomidine In 0.9 % NaCl 100 ML IVPB SCH (22:08)
[2020-08-15] MEDS: Vancomycin 1.5 GRAM/300 ML BAG 1.5 GM in Premix Bag 1 BAG IVPB SCH (23:35)
[2020-08-16] MEDS ORDERED: Octreotide Acetate 100 MCG/ML VIAL ONE (00:21)
[2020-08-16] MEDS ORDERED: Octreotide Acetate 50 MCG/ML AMP ONE (00:21)
[2020-08-16] MEDS: Hydrocortisone Sod Succ/PF 100 mg/2 ml Vial IVP SCH ×4 (00:21→17:37)
[2020-08-16] MEDS: Octreotide Acetate 1,250 MCG in Sodium Chloride 0.9% 250 ML 250 ML IVPB SCH (00:41)
[2020-08-16] MEDS: Lactulose 10 GM/15 ML Oral Solution PR SCH ×3 (03:02→16:13)
[2020-08-16] MEDS: Piperacillin/Tazobactam 3.375 GM in Sodium Chloride 0.9% 100 ML IVPB SCH ×3 (03:02→20:40)
[2020-08-16] MEDS: Dexmedetomidine In 0.9 % NaCl 100 ML IVPB SCH (03:08)
[2020-08-16] MEDS: Norepinephrine 8 MG/0.9% NS 250 ML IVPB SCH (06:36)
[2020-08-16 09:04] LABS: #Monocytes 1.3 10x3/uL (0.0-1.1); #Neutrophils 11.2 10x3/uL (1.5-8.4); %Basophils 0.1 % (0.0-2.0); %Eosinophils 0.1 % (0.0-6.0); %Lymphocytes 4.7 % (18.0-47.0); %Monocytes 9.5 % (0.0-10.0); %Neutrophils 82.9 % (40.0-75.0); Hemoglobin 9.3 g/dL (13.5-17.5); Mean Corpuscular HGB CONC 35.5 g/dL (32.0-36.0); Mean Platelet Volume 10.9 fl (7.4-10.4); Platelet Count 48 10x3/uL (150-450); RBC Distribution Width 17.9 % (11.5-14.5); Red Blood Cell (RBC) Count 2.91 10x6/uL (4.32-5.72); White Blood Cell (WBC) Count 13.6 10x3/uL (3.5-10.5)
[2020-08-16 09:14] LABS: AST (SGOT) 467 U/L (5-34); Albumin 2.6 g/dL (3.5-5.0); Alkaline Phosphatase 286 U/L (40-110); Anion Gap 15 mmol/L (10-20); BUN (Urea Nitrogen) 64 mg/dL (8.9-20.6); Calc. Creatinine Clearance 68 mL/min (70-130); Calcium 8.3 mg/dL (7.8-10.44); Carbon Dioxide 23 mmol/L (22-29); Chloride 109 mmol/L (98-107); Globulin 1.3 g/dL (2.4-3.5); Glucose 151 mg/dL (70-105); Protein, Total 3.9 g/dL (6.0-8.3); Sodium 144 mmol/L (136-145)
[2020-08-16 09:22] LABS: Bilirubin, Total 38.2 mg/dL (0.2-1.2)
[2020-08-16 09:33] LABS: ALT (SGPT) 793 U/L (8-55); Potassium 2.7 mmol/L (3.5-5.1)
[2020-08-16] MEDS ORDERED: Potassium Chloride 40 MEQ in Premix Bag 1 BAG IVPB SCH ×2 (09:45→10:00)
[2020-08-16] MEDS: Sodium Chloride 0.9% 1,000 ML IV SCH (11:58)
[2020-08-16 15:13] LABS: Anion Gap 15 mmol/L (10-20); BUN (Urea Nitrogen) 67 mg/dL (8.9-20.6); Calc. Creatinine Clearance 67 mL/min (70-130); Calcium 8.4 mg/dL (7.8-10.44); Carbon Dioxide 23 mmol/L (22-29); Chloride 110 mmol/L (98-107); Glucose 131 mg/dL (70-105); Potassium 3.4 mmol/L (3.5-5.1); Sodium 145 mmol/L (136-145)
[2020-08-16] MEDS: Pantoprazole 80 MG in Sodium Chloride 0.9% 100 ML IVPB SCH (16:49)
[2020-08-16] MEDS: Multivitamins, Adult 10 ML, Folic Acid 1 MG, Thiamine HCl 100 MG, Admixture Fee 1 EACH ... IV SCH (17:37)
[2020-08-16] MEDS: Pantoprazole 40 MG VIAL IVP SCH (20:40)
[2020-08-16 22:23] LABS: Vancomycin, Trough 15.4 ug/mL
[2020-08-17] MEDS: Vancomycin 1.5 GRAM/300 ML BAG 1.5 GM in Premix Bag 1 BAG IVPB SCH ×2 (00:54→22:10)
[2020-08-17] MEDS: Hydrocortisone Sod Succ/PF 100 mg/2 ml Vial IVP SCH ×2 (00:57→06:08)
[2020-08-17] MEDS: Piperacillin/Tazobactam 3.375 GM in Sodium Chloride 0.9% 100 ML IVPB SCH ×3 (03:47→20:07)
[2020-08-17 04:11] LABS: #Monocytes 1.6 10x3/uL (0.0-1.1); #Neutrophils 12.7 10x3/uL (1.5-8.4); %Basophils 0.2 % (0.0-2.0); %Lymphocytes 4.5 % (18.0-47.0); %Monocytes 10.1 % (0.0-10.0); %Neutrophils 81.1 % (40.0-75.0); Hemoglobin 9.2 g/dL (13.5-17.5); Mean Corpuscular HGB CONC 34.8 g/dL (32.0-36.0); Mean Corpuscular Hemoglobin 31.9 pg (27.0-33.0); Mean Corpuscular Volume 91.7 fl (81.2-95.1); Mean Platelet Volume 10.7 fl (7.4-10.4); Platelet Count 61 10x3/uL (150-450); RBC Distribution Width 18.4 % (11.5-14.5); Red Blood Cell (RBC) Count 2.88 10x6/uL (4.32-5.72); White Blood Cell (WBC) Count 15.6 10x3/uL (3.5-10.5)
[2020-08-17 04:16] LABS: Anion Gap 17 mmol/L (10-20); Globulin 1.3 g/dL (2.4-3.5)
[2020-08-17 04:24] LABS: INR-International Normal Ratio 2.1; Prothrombin Time 22.1 sec (9.5-12.1)
[2020-08-17 04:25] LABS: Bilirubin, Total 37.2 mg/dL (0.2-1.2)
[2020-08-17 04:47] LABS: ALT (SGPT) 642 U/L (8-55); AST (SGOT) 263 U/L (5-34); Albumin 2.4 g/dL (3.5-5.0); Alkaline Phosphatase 290 U/L (40-110); BUN (Urea Nitrogen) 68 mg/dL (8.9-20.6); Calc. Creatinine Clearance 67 mL/min (70-130); Calcium 8.2 mg/dL (7.8-10.44); Carbon Dioxide 21 mmol/L (22-29); Chloride 110 mmol/L (98-107); Glucose 183 mg/dL (70-105); Potassium 3.1 mmol/L (3.5-5.1); Protein, Total 3.7 g/dL (6.0-8.3); Sodium 145 mmol/L (136-145)
[2020-08-17] MEDS: Pantoprazole 40 MG VIAL IVP SCH ×2 (08:33→20:07)
[2020-08-17] MEDS: Sodium Chloride 0.9% 1,000 ML IV SCH (08:34)
[2020-08-17 09:03] LABS: Actual Bicarbonate (HCO3a) 23.1 mEq/L (22-28); Base Excess (BEa) -0.3 mEq/L (-2.0 to +3.0); CO2 Tension 33.2 mmHg (35.0-45.0); Calcium, Ionized (arterial) 1.19 mmol/L (1.12-1.30); Carboxyhemoglobin (COHb) 1.5 gm% (0.0-3.0); Hemoglobin (Hb) 10.1 g/dL (14.0-18.0); O2 Tension (PaO2), arterial 82.2 mmHg (80.0-100.0); Potassium - ABG Lab 3.1 mmol/L (3.70-5.30); Puncture Site RRA; pH, Arterial 7.46 (7.35-7.45)
[2020-08-17] MEDS ORDERED: Furosemide 40 MG/4 ML VIAL ONE (09:29)
[2020-08-17] MEDS ORDERED: Furosemide 40 MG/4 ML VIAL SLOW IVP SCH (10:00)
[2020-08-17] MEDS ORDERED: Dextrose 5% in Water 1,000 ML IV PRN (16:29)
[2020-08-17] MEDS ORDERED: HumaLOG 300 UNITS/3 ML VIAL SC PRN (16:29)
[2020-08-17] MEDS ORDERED: Dextrose 50% Abboject 50 ML SYRINGE SLOW IVP PRN (16:29)
[2020-08-18] MEDS: Piperacillin/Tazobactam 3.375 GM in Sodium Chloride 0.9% 100 ML IVPB SCH ×3 (03:38→20:06)
[2020-08-18 04:27] LABS: Anion Gap 15 mmol/L (10-20); Globulin 1.3 g/dL (2.4-3.5)
[2020-08-18 04:32] LABS: ALT (SGPT) 495 U/L (8-55); AST (SGOT) 150 U/L (5-34); Albumin 2.3 g/dL (3.5-5.0); Alkaline Phosphatase 287 U/L (40-110); BUN (Urea Nitrogen) 67 mg/dL (8.9-20.6); Calc. Creatinine Clearance 72 mL/min (70-130); Calcium 8.1 mg/dL (7.8-10.44); Carbon Dioxide 22 mmol/L (22-29); Chloride 109 mmol/L (98-107); Glucose 142 mg/dL (70-105); Potassium 2.7 mmol/L (3.5-5.1); Protein, Total 3.6 g/dL (6.0-8.3); Sodium 143 mmol/L (136-145)
[2020-08-18] MEDS ORDERED: Potassium Bicarbonate/Cit Ac 20 MEQ TAB PO SCH ×2 (04:45→06:30)
[2020-08-18] MEDS: Potassium Chloride 20 MEQ in Premix Bag 1 BAG IVPB SCH ×2 (05:11→07:10)
[2020-08-18 05:24] LABS: Bilirubin, Total 35.7 mg/dL (0.2-1.2)
[2020-08-18 06:00] LABS: #Eosinphils 0.1 10x3/uL (0.0-0.5); #Monocytes 1.6 10x3/uL (0.0-1.1); #Neutrophils 15.4 10x3/uL (1.5-8.4); %Basophils 0.1 % (0.0-2.0); %Eosinophils 0.3 % (0.0-6.0); %Lymphocytes 3.6 % (18.0-47.0); %Monocytes 8.5 % (0.0-10.0); %Neutrophils 84.6 % (40.0-75.0); Hemoglobin 9.1 g/dL (13.5-17.5); Mean Corpuscular Hemoglobin 31.5 pg (27.0-33.0); Mean Corpuscular Volume 92.7 fl (81.2-95.1); Mean Platelet Volume 11.9 fl (7.4-10.4); Platelet Count 42 10x3/uL (150-450); RBC Distribution Width 18.9 % (11.5-14.5); Red Blood Cell (RBC) Count 2.89 10x6/uL (4.32-5.72); White Blood Cell (WBC) Count 18.2 10x3/uL (3.5-10.5)
[2020-08-18] MEDS: Pantoprazole 40 MG VIAL IVP SCH ×2 (07:58→20:06)
[2020-08-18 17:47] LABS: Anion Gap 15 mmol/L (10-20); BUN (Urea Nitrogen) 79 mg/dL (8.9-20.6); Calc. Creatinine Clearance 66 mL/min (70-130); Carbon Dioxide 21 mmol/L (22-29); Chloride 110 mmol/L (98-107); Glucose 121 mg/dL (70-105); Potassium 3.4 mmol/L (3.5-5.1); Sodium 143 mmol/L (136-145)
[2020-08-18] MEDS: Sodium Chloride 0.9% 1,000 ML IV SCH (20:25)
[2020-08-18 22:55] LABS: Vancomycin, Trough 25.9 ug/mL
[2020-08-18 23:30] LABS: Hemoglobin 9.1 g/dL (13.5-17.5)
[2020-08-18] MEDS ORDERED: Albumin 25% 25 GM/100 ML BOT IVPB SCH (23:30)
[2020-08-19] MEDS: Piperacillin/Tazobactam 3.375 GM in Sodium Chloride 0.9% 100 ML IVPB SCH ×3 (04:14→23:23)
[2020-08-19 04:24] LABS: Hemoglobin 8.7 g/dL (13.5-17.5); Mean Corpuscular HGB CONC 34.8 g/dL (32.0-36.0); Mean Corpuscular Hemoglobin 32.5 pg (27.0-33.0); Mean Corpuscular Volume 93.3 fl (81.2-95.1); Mean Platelet Volume 11.7 fl (7.4-10.4); Platelet Count 43 10x3/uL (150-450); RBC Distribution Width 19.5 % (11.5-14.5); Red Blood Cell (RBC) Count 2.68 10x6/uL (4.32-5.72); White Blood Cell (WBC) Count 27.3 10x3/uL (3.5-10.5)
[2020-08-19 04:38] LABS: AST (SGOT) 104 U/L (5-34); Albumin 2.5 g/dL (3.5-5.0); Alkaline Phosphatase 257 U/L (40-110); Anion Gap 19 mmol/L (10-20); BUN (Urea Nitrogen) 83 mg/dL (8.9-20.6); Calc. Creatinine Clearance 52 mL/min (70-130); Calcium 8.2 mg/dL (7.8-10.44); Carbon Dioxide 20 mmol/L (22-29); Chloride 106 mmol/L (98-107); Globulin 1.1 g/dL (2.4-3.5); Glucose 98 mg/dL (70-105); Potassium 3.5 mmol/L (3.5-5.1); Protein, Total 3.6 g/dL (6.0-8.3); Sodium 141 mmol/L (136-145)
[2020-08-19 04:45] LABS: Bilirubin, Total 36.6 mg/dL (0.2-1.2)
[2020-08-19 04:47] LABS: ALT (SGPT) 355 U/L (8-55)
[2020-08-19 06:42] LABS: Band 6 % (5-11); Eosinophils 2 % (0-10); Lymphocytes 7 % (21-51)
[2020-08-19 06:45] LABS: Metamyelocyte 1 % (0-0); Myelocyte 3 % (0-0)
[2020-08-19 06:46] LABS: Neutrophil 72 % (42-75)
[2020-08-19 06:47] LABS: Monocytes 9 % (0-10)
[2020-08-19 06:51] LABS: Macrocytosis SLIGHT = 6-15 cells (100X) (0-5/hpf); Microcytosis SLIGHT = 6-15 cells (100X) (0-5/hpf); Ovalocytes SLIGHT = 2-5 cells (100X) (0-1/hpf); Polychromasia SLIGHT = 2-3 cells (100X) (0-2/hpf); Target Cells SLIGHT = 2-5 cells (100X) (0-1/hpf)
[2020-08-19 06:52] LABS: Burr Cells SLIGHT = 2-5 cells (100X) (0-1/hpf); Crenated RBC SLIGHT = 1-5 cells (100X) (None Seen)
[2020-08-19 06:54] LABS: Helmet Cells SLIGHT = 2-5 cells (100X) (0-1/hpf)
[2020-08-19 06:55] LABS: Large Platelets SLIGHT; Platelet Clumps SLIGHT; Platelet Morphology Comment Appears Decreased; Spherocytes SLIGHT = 1-5 cells (100X) (None Seen)
[2020-08-19 06:56] LABS: Anisocytosis MODERATE=16-30 cells (100X) (0-5/hpf); Dohle Bodies SLIGHT; Hypersemented Neutrophil SLIGHT; Poikilocytosis MODERATE=16-30 cells (100X) (0-5/hpf); Toxic Granulation SLIGHT
[2020-08-19 06:57] LABS: MDiff Complete? YES; Manual Diff?? YES
[2020-08-19] MEDS: Pantoprazole 40 MG VIAL IVP SCH ×2 (08:09→20:27)
[2020-08-19] MEDS: Sodium Chloride 0.9% 1,000 ML IV SCH ×3 (10:47→18:58)
[2020-08-19 10:48] LABS: Vancomycin, Random 23.7 ug/mL (See Comment)
[2020-08-19] MEDS ORDERED: Octreotide Acetate 1,250 MCG in Sodium Chloride 0.9% 250 ML 250 ML IVPB SCH (11:00)
[2020-08-19] MEDS: Octreotide Acetate 1,250 MCG, Admixture Fee 1 EACH in Sodium Chloride 0.9% 250 ML 250 ML IVPB SCH (11:10)
[2020-08-19] MEDS: Albumin 25% 25 GM/100 ML BOT IVPB SCH ×2 (14:53→20:27)
[2020-08-20] MEDS: Sodium Chloride 0.9% 1,000 ML IV SCH ×3 (04:32→12:38)
[2020-08-20 04:44] LABS: Prothrombin Time 21.9 sec (9.5-12.1)
[2020-08-20 04:49] LABS: Anion Gap 17 mmol/L (10-20)
[2020-08-20 04:52] LABS: #Eosinphils 0.6 10x3/uL (0.0-0.5); #Neutrophils 16.1 10x3/uL (1.5-8.4); %Basophils 0.1 % (0.0-2.0); %Eosinophils 3.3 % (0.0-6.0); %Lymphocytes 6.2 % (18.0-47.0); %Monocytes 5.3 % (0.0-10.0); %Neutrophils 83.7 % (40.0-75.0); Hemoglobin 7.1 g/dL (13.5-17.5); Mean Corpuscular HGB CONC 34.3 g/dL (32.0-36.0); Mean Corpuscular Hemoglobin 32.6 pg (27.0-33.0); Mean Platelet Volume 12.6 fl (7.4-10.4); Platelet Count 37 10x3/uL (150-450); RBC Distribution Width 19.6 % (11.5-14.5); Red Blood Cell (RBC) Count 2.18 10x6/uL (4.32-5.72); White Blood Cell (WBC) Count 19.2 10x3/uL (3.5-10.5)
[2020-08-20 05:16] LABS: Anisocytosis MODERATE=16-30 cells (100X) (0-5/hpf); Polychromasia SLIGHT = 2-3 cells (100X) (0-2/hpf)
[2020-08-20 05:17] LABS: Macrocytosis SLIGHT = 6-15 cells (100X) (0-5/hpf); Microcytosis SLIGHT = 6-15 cells (100X) (0-5/hpf); Poikilocytosis SLIGHT = 6-15 cells (100X) (0-5/hpf)
[2020-08-20 05:18] LABS: Ovalocytes SLIGHT = 2-5 cells (100X) (0-1/hpf)
[2020-08-20 05:19] LABS: Burr Cells SLIGHT = 2-5 cells (100X) (0-1/hpf); Target Cells SLIGHT = 2-5 cells (100X) (0-1/hpf)
[2020-08-20 05:20] LABS: Spherocytes SLIGHT = 1-5 cells (100X) (None Seen)
[2020-08-20 05:21] LABS: Large Platelets MODERATE; Platelet Clumps SLIGHT; Platelet Morphology Comment Appears Decreased; Toxic Granulation SLIGHT
[2020-08-20 05:44] LABS: ALT (SGPT) 226 U/L (8-55); AST (SGOT) 67 U/L (5-34); Albumin 2.5 g/dL (3.5-5.0); Alkaline Phosphatase 187 U/L (40-110); BUN (Urea Nitrogen) 88 mg/dL (8.9-20.6); Calc. Creatinine Clearance 51 mL/min (70-130); Calcium 8.3 mg/dL (7.8-10.44); Carbon Dioxide 19 mmol/L (22-29); Chloride 105 mmol/L (98-107); Glucose 101 mg/dL (70-105); Potassium 3.2 mmol/L (3.5-5.1); Protein, Total 3.5 g/dL (6.0-8.3); Sodium 138 mmol/L (136-145)
[2020-08-20] MEDS: Albumin 25% 25 GM/100 ML BOT IVPB SCH ×2 (08:10→21:29)
[2020-08-20] MEDS: Pantoprazole 40 MG VIAL IVP SCH ×2 (08:10→21:30)
[2020-08-20] MEDS: Octreotide Acetate 1,250 MCG, Admixture Fee 1 EACH in Sodium Chloride 0.9% 250 ML 250 ML IVPB SCH (10:17)
[2020-08-20] MEDS: Piperacillin/Tazobactam 3.375 GM in Sodium Chloride 0.9% 100 ML IVPB SCH ×2 (11:00→23:42)
[2020-08-20] MEDS ORDERED: Potassium Chloride 20 MEQ TAB PO SCH (11:00)
[2020-08-21 04:16] LABS: Anion Gap 17 mmol/L (10-20)
[2020-08-21 04:21] LABS: ALT (SGPT) 173 U/L (8-55); AST (SGOT) 57 U/L (5-34); Albumin 2.7 g/dL (3.5-5.0); Alkaline Phosphatase 199 U/L (40-110); BUN (Urea Nitrogen) 83 mg/dL (8.9-20.6); Calc. Creatinine Clearance 61 mL/min (70-130); Calcium 8.3 mg/dL (7.8-10.44); Carbon Dioxide 18 mmol/L (22-29); Chloride 106 mmol/L (98-107); Glucose 134 mg/dL (70-105); Potassium 2.7 mmol/L (3.5-5.1); Protein, Total 3.7 g/dL (6.0-8.3); Sodium 138 mmol/L (136-145)
[2020-08-21 04:23] LABS: Bilirubin, Total 34.4 mg/dL (0.2-1.2)
[2020-08-21 04:58] LABS: #Eosinphils 0.4 10x3/uL (0.0-0.5); #Monocytes 0.9 10x3/uL (0.0-1.1); #Neutrophils 13.6 10x3/uL (1.5-8.4); %Basophils 0.1 % (0.0-2.0); %Eosinophils 2.7 % (0.0-6.0); %Lymphocytes 5.8 % (18.0-47.0); %Monocytes 5.5 % (0.0-10.0); %Neutrophils 84.8 % (40.0-75.0); Hemoglobin 6.9 g/dL (13.5-17.5); Mean Corpuscular HGB CONC 34.8 g/dL (32.0-36.0); Mean Corpuscular Hemoglobin 32.4 pg (27.0-33.0); Platelet Count 38 10x3/uL (150-450); RBC Distribution Width 18.9 % (11.5-14.5); Red Blood Cell (RBC) Count 2.13 10x6/uL (4.32-5.72); White Blood Cell (WBC) Count 16.1 10x3/uL (3.5-10.5)
[2020-08-21] MEDS ORDERED: Potassium Chloride 20 MEQ TAB PO SCH ×2 (06:45→16:00)
[2020-08-21] MEDS: VANCOMYCIN 1.25 GM/250 ML BAG 1.25 GM in Premix Bag 1 BAG IVPB SCH (08:11)
[2020-08-21] MEDS: Octreotide Acetate 1,250 MCG, Admixture Fee 1 EACH in Sodium Chloride 0.9% 250 ML 250 ML IVPB SCH (09:36)
[2020-08-21] MEDS: Albumin 25% 25 GM/100 ML BOT IVPB SCH ×3 (09:36→21:44)
[2020-08-21] MEDS: Pantoprazole 40 MG VIAL IVP SCH ×2 (09:36→21:40)
[2020-08-21] MEDS: Piperacillin/Tazobactam 3.375 GM in Sodium Chloride 0.9% 100 ML IVPB SCH ×2 (10:35→23:38)
[2020-08-22 05:45] LABS: #Eosinphils 0.4 10x3/uL (0.0-0.5); #Monocytes 1.2 10x3/uL (0.0-1.1); #Neutrophils 13.7 10x3/uL (1.5-8.4); %Basophils 0.1 % (0.0-2.0); %Eosinophils 2.3 % (0.0-6.0); %Lymphocytes 5.4 % (18.0-47.0); %Monocytes 7.2 % (0.0-10.0); %Neutrophils 83.7 % (40.0-75.0); Mean Corpuscular HGB CONC 34.3 g/dL (32.0-36.0); Mean Corpuscular Hemoglobin 31.7 pg (27.0-33.0); Mean Corpuscular Volume 92.5 fl (81.2-95.1); Mean Platelet Volume 12.6 fl (7.4-10.4); Platelet Count 39 10x3/uL (150-450); RBC Distribution Width 20.4 % (11.5-14.5); Red Blood Cell (RBC) Count 2.52 10x6/uL (4.32-5.72); White Blood Cell (WBC) Count 16.4 10x3/uL (3.5-10.5)
[2020-08-22 05:48] LABS: ALT (SGPT) 139 U/L (8-55); AST (SGOT) 51 U/L (5-34); Albumin 2.9 g/dL (3.5-5.0); Alkaline Phosphatase 173 U/L (40-110); Anion Gap 16 mmol/L (10-20); BUN (Urea Nitrogen) 69 mg/dL (8.9-20.6); Calc. Creatinine Clearance 77 mL/min (70-130); Calcium 8.6 mg/dL (7.8-10.44); Carbon Dioxide 17 mmol/L (22-29); Chloride 112 mmol/L (98-107); Globulin 0.9 g/dL (2.4-3.5); Glucose 114 mg/dL (70-105); Magnesium 2.6 mg/dL (1.6-2.6); Protein, Total 3.8 g/dL (6.0-8.3); Sodium 142 mmol/L (136-145)
[2020-08-22 05:59] LABS: Potassium 2.9 mmol/L (3.5-5.1)
[2020-08-22 06:03] LABS: Bilirubin, Total 35.8 mg/dL (0.2-1.2)
[2020-08-22] MEDS ORDERED: Potassium Chloride 20 MEQ TAB PO SCH (06:15)
[2020-08-22] MEDS: Pantoprazole 40 MG VIAL IVP SCH ×2 (08:31→21:27)
[2020-08-22] MEDS: Piperacillin/Tazobactam 3.375 GM in Sodium Chloride 0.9% 100 ML IVPB SCH ×2 (12:22→23:04)
[2020-08-22] MEDS: Potassium Chloride 20 MEQ TAB PO SCH ×2 (14:55→21:27)
[2020-08-22] MEDS ORDERED: Fentanyl 100 MCG/2 ML VIAL SLOW IVP SCH (21:15)
[2020-08-22] MEDS: Albumin 25% 25 GM/100 ML BOT IVPB SCH (21:27)
[2020-08-23 05:05] LABS: %Monocytes 7.2 % (0.0-10.0); %Neutrophils 81.1 % (40.0-75.0); Hemoglobin 8.7 g/dL (13.5-17.5); Mean Corpuscular HGB CONC 34.7 g/dL (32.0-36.0); Mean Corpuscular Hemoglobin 32.1 pg (27.0-33.0); Mean Corpuscular Volume 92.6 fl (81.2-95.1); Mean Platelet Volume 12.9 fl (7.4-10.4); Platelet Count 44 10x3/uL (150-450); RBC Distribution Width 20.4 % (11.5-14.5); Red Blood Cell (RBC) Count 2.71 10x6/uL (4.32-5.72); White Blood Cell (WBC) Count 16.8 10x3/uL (3.5-10.5)
[2020-08-23 05:06] LABS: #Eosinphils 0.5 10x3/uL (0.0-0.5); #Monocytes 1.2 10x3/uL (0.0-1.1); #Neutrophils 13.6 10x3/uL (1.5-8.4); %Basophils 0.1 % (0.0-2.0); %Eosinophils 2.7 % (0.0-6.0)
[2020-08-23 05:09] LABS: Anion Gap 19 mmol/L (10-20); Globulin 1.1 g/dL (2.4-3.5)
[2020-08-23 05:16] LABS: Bilirubin, Total 38.8 mg/dL (0.2-1.2)
[2020-08-23 05:28] LABS: ALT (SGPT) 132 U/L (8-55); AST (SGOT) 54 U/L (5-34); Albumin 3.3 g/dL (3.5-5.0); Alkaline Phosphatase 195 U/L (40-110); BUN (Urea Nitrogen) 57 mg/dL (8.9-20.6); Calc. Creatinine Clearance 93 mL/min (70-130); Calcium 9.4 mg/dL (7.8-10.44); Carbon Dioxide 15 mmol/L (22-29); Chloride 115 mmol/L (98-107); Glucose 111 mg/dL (70-105); Potassium 3.5 mmol/L (3.5-5.1); Protein, Total 4.4 g/dL (6.0-8.3); Sodium 145 mmol/L (136-145)
[2020-08-23 06:57] LABS: Vancomycin, Random 14.7 ug/mL (See Comment)
[2020-08-23] MEDS ORDERED: Potassium Chloride 20 MEQ TAB PO SCH (08:30)
[2020-08-23] MEDS: Sodium Bicarbonate Tab 325 MG TAB PO SCH ×3 (09:12→21:14)
[2020-08-23] MEDS: Pantoprazole 40 MG VIAL IVP SCH ×2 (09:12→21:15)
[2020-08-23] MEDS: Albumin 25% 25 GM/100 ML BOT IVPB SCH ×3 (09:23→21:14)
[2020-08-23] MEDS: VANCOMYCIN 1.25 GM/250 ML BAG 1.25 GM in Premix Bag 1 BAG IVPB SCH ×2 (09:23→11:16)
[2020-08-23] MEDS ORDERED: VANCOMYCIN 1.25 GM/250 ML BAG 1.25 GM in Premix Bag 1 BAG IVPB SCH (09:30)
[2020-08-23] MEDS: Piperacillin/Tazobactam 3.375 GM in Sodium Chloride 0.9% 100 ML IVPB SCH ×2 (13:14→23:48)
[2020-08-24 05:33] LABS: Hemoglobin 7.4 g/dL (13.5-17.5); Mean Corpuscular HGB CONC 34.3 g/dL (32.0-36.0); Mean Corpuscular Hemoglobin 32.2 pg (27.0-33.0); Mean Corpuscular Volume 93.9 fl (81.2-95.1); Mean Platelet Volume 11.7 fl (7.4-10.4)
[2020-08-24 05:37] LABS: Platelet Count 29 10x3/uL (150-450)
[2020-08-24 05:40] LABS: ALT (SGPT) 97 U/L (8-55); AST (SGOT) 46 U/L (5-34); Albumin 3.2 g/dL (3.5-5.0); Alkaline Phosphatase 145 U/L (40-110); Anion Gap 15 mmol/L (10-20); BUN (Urea Nitrogen) 46 mg/dL (8.9-20.6); Calc. Creatinine Clearance 107 mL/min (70-130); Calcium 9.2 mg/dL (7.8-10.44); Carbon Dioxide 17 mmol/L (22-29); Chloride 118 mmol/L (98-107); Globulin 0.9 g/dL (2.4-3.5); Glucose 104 mg/dL (70-105); Potassium 3.3 mmol/L (3.5-5.1); Protein, Total 4.1 g/dL (6.0-8.3); Sodium 147 mmol/L (136-145)
[2020-08-24 05:47] LABS: Bilirubin, Total 31.5 mg/dL (0.2-1.2)
[2020-08-24 06:27] LABS: %Lymphocytes 9.1 % (18.0-47.0); %Neutrophils 79.2 % (40.0-75.0); Platelet Morphology Comment Appears Decreased
[2020-08-24 06:28] LABS: #Eosinphils 0.3 10x3/uL (0.0-0.5); #Monocytes 1.1 10x3/uL (0.0-1.1); #Neutrophils 10.3 10x3/uL (1.5-8.4); %Basophils 0.2 % (0.0-2.0); %Eosinophils 2.2 % (0.0-6.0); %Monocytes 8.6 % (0.0-10.0)
[2020-08-24] MEDS ORDERED: Potassium Chloride 20 MEQ TAB PO SCH (09:00)
[2020-08-24] MEDS: VANCOMYCIN 1.25 GM/250 ML BAG 1.25 GM in Premix Bag 1 BAG IVPB SCH ×2 (09:17→09:18)
[2020-08-24] MEDS: Pantoprazole 40 MG VIAL IVP SCH ×2 (09:18→21:51)
[2020-08-24] MEDS: Sodium Bicarbonate Tab 325 MG TAB PO SCH ×3 (09:18→21:52)
[2020-08-24] MEDS: Piperacillin/Tazobactam 3.375 GM in Sodium Chloride 0.9% 100 ML IVPB SCH ×2 (11:46→23:39)
[2020-08-24 13:56] LABS: Platelet Count 68 10x3/uL (150-450)
[2020-08-24 14:38] VITALS: BMI 48.2
[2020-08-25 04:22] LABS: #Eosinphils 0.3 10x3/uL (0.0-0.5); #Monocytes 0.9 10x3/uL (0.0-1.1); #Neutrophils 10.8 10x3/uL (1.5-8.4); %Basophils 0.1 % (0.0-2.0); %Eosinophils 2.5 % (0.0-6.0); %Lymphocytes 8.6 % (18.0-47.0); %Neutrophils 81.1 % (40.0-75.0); Hemoglobin 7.9 g/dL (13.5-17.5); Mean Corpuscular HGB CONC 33.2 g/dL (32.0-36.0); Mean Corpuscular Hemoglobin 32.1 pg (27.0-33.0); Mean Corpuscular Volume 96.7 fl (81.2-95.1); Mean Platelet Volume 10.7 fl (7.4-10.4); Platelet Count 50 10x3/uL (150-450); RBC Distribution Width 21.8 % (11.5-14.5); Red Blood Cell (RBC) Count 2.46 10x6/uL (4.32-5.72); White Blood Cell (WBC) Count 13.3 10x3/uL (3.5-10.5)
[2020-08-25 04:30] LABS: Anion Gap 17 mmol/L (10-20); Globulin 0.9 g/dL (2.4-3.5)
[2020-08-25 04:44] LABS: ALT (SGPT) 83 U/L (8-55); AST (SGOT) 49 U/L (5-34); Alkaline Phosphatase 166 U/L (40-110); BUN (Urea Nitrogen) 41 mg/dL (8.9-20.6); Calc. Creatinine Clearance 98 mL/min (70-130); Calcium 9.4 mg/dL (7.8-10.44); Carbon Dioxide 14 mmol/L (22-29); Chloride 122 mmol/L (98-107); Glucose 97 mg/dL (70-105); Potassium 3.3 mmol/L (3.5-5.1); Protein, Total 3.9 g/dL (6.0-8.3); Sodium 150 mmol/L (136-145)
[2020-08-25] MEDS: Pantoprazole 40 MG VIAL IVP SCH ×2 (09:09→22:22)
[2020-08-25] MEDS: Sodium Bicarbonate Tab 325 MG TAB PO SCH (09:10)
[2020-08-25] MEDS ORDERED: Potassium Chloride 20 MEQ TAB PO SCH (09:30)
[2020-08-25 09:36] LABS: Vancomycin, Trough 20.2 ug/mL
[2020-08-25] MEDS ORDERED: Sodium Bicarbonate 50 MEQ in Dextrose 5% in Water 1,000 ML IV SCH (11:00)
[2020-08-25] MEDS ORDERED: Albumin 25% 25 GM/100 ML BOT IVPB SCH (11:00)
[2020-08-25] MEDS: Piperacillin/Tazobactam 3.375 GM in Sodium Chloride 0.9% 100 ML IVPB SCH (11:03)
[2020-08-25 14:48] LABS: INR-International Normal Ratio 2.1; Prothrombin Time 22.2 sec (9.5-12.1)
[2020-08-25 14:55] LABS: PTT 72.2 sec (22.0-33.0)
[2020-08-25] MEDS: Dronabinol 2.5 MG CAP PO SCH (17:26)
[2020-08-25] MEDS ORDERED: VANCOMYCIN 1.25 GM/250 ML BAG 1.25 GM in Premix Bag 1 BAG IVPB SCH (21:00)
[2020-08-26] MEDS: Piperacillin/Tazobactam 3.375 GM in Sodium Chloride 0.9% 100 ML IVPB SCH ×3 (00:45→23:54)
[2020-08-26 04:23] LABS: #Eosinphils 0.4 10x3/uL (0.0-0.5); #Monocytes 0.9 10x3/uL (0.0-1.1); #Neutrophils 8.9 10x3/uL (1.5-8.4); %Basophils 0.3 % (0.0-2.0); %Eosinophils 3.2 % (0.0-6.0); %Lymphocytes 11.5 % (18.0-47.0); %Monocytes 7.3 % (0.0-10.0); %Neutrophils 77.2 % (40.0-75.0); Hemoglobin 7.9 g/dL (13.5-17.5); Mean Corpuscular HGB CONC 33.8 g/dL (32.0-36.0); Mean Corpuscular Hemoglobin 32.2 pg (27.0-33.0); Mean Corpuscular Volume 95.5 fl (81.2-95.1); Mean Platelet Volume 11.1 fl (7.4-10.4); Platelet Count 43 10x3/uL (150-450); RBC Distribution Width 21.8 % (11.5-14.5); Red Blood Cell (RBC) Count 2.45 10x6/uL (4.32-5.72); White Blood Cell (WBC) Count 11.6 10x3/uL (3.5-10.5)
[2020-08-26 04:26] LABS: Anion Gap 16 mmol/L (10-20); Globulin 0.8 g/dL (2.4-3.5)
[2020-08-26 04:27] LABS: ALT (SGPT) 71 U/L (8-55); AST (SGOT) 50 U/L (5-34); Albumin 2.9 g/dL (3.5-5.0); Alkaline Phosphatase 157 U/L (40-110); BUN (Urea Nitrogen) 38 mg/dL (8.9-20.6); Calc. Creatinine Clearance 93 mL/min (70-130); Calcium 9.4 mg/dL (7.8-10.44); Carbon Dioxide 15 mmol/L (22-29); Chloride 121 mmol/L (98-107); Glucose 90 mg/dL (70-105); Potassium 3.1 mmol/L (3.5-5.1); Protein, Total 3.7 g/dL (6.0-8.3); Sodium 149 mmol/L (136-145)
[2020-08-26 04:35] LABS: Bilirubin, Total 31.7 mg/dL (0.2-1.2)
[2020-08-26 04:36] LABS: Prothrombin Time 21.8 sec (9.5-12.1)
[2020-08-26] MEDS: Dronabinol 2.5 MG CAP PO SCH ×2 (06:20→15:57)
[2020-08-26] MEDS: Pantoprazole 40 MG VIAL IVP SCH ×2 (08:23→21:24)
[2020-08-26] MEDS ORDERED: Potassium Chloride 20 MEQ TAB PO SCH (09:30)
[2020-08-26] MEDS ORDERED: Aquaphor 30 GM JAR TOP PRN (11:16)
[2020-08-26] MEDS: Aluminum & Magnesium Hydroxide 60 ML, diphenhydrAMINE 150 MG, Lidocaine 2% Viscous Solu... SSW PRN (18:41)
[2020-08-26] MEDS: Potassium Chloride 20 MEQ TAB PO SCH (21:24)
[2020-08-27] MEDS: Dronabinol 2.5 MG CAP PO SCH (06:40)
[2020-08-27 06:54] VITALS: TEMP 98.7
[2020-08-27 08:19] LABS: Vancomycin, Trough 25.3 ug/mL
[2020-08-27 08:54] VITALS: BP 83/44
[2020-08-27] MEDS: Potassium Chloride 20 MEQ TAB PO SCH (09:36)
[2020-08-27] MEDS: Aluminum & Magnesium Hydroxide 60 ML, diphenhydrAMINE 150 MG, Lidocaine 2% Viscous Solu... SSW PRN (09:36)
[2020-08-27] MEDS: Pantoprazole 40 MG VIAL IVP SCH (09:36)
[2020-08-27] MEDS: Piperacillin/Tazobactam 3.375 GM in Sodium Chloride 0.9% 100 ML IVPB SCH (11:51)
[2020-08-28] MEDS ORDERED: Vancomycin HCl 750 MG in Sodium Chloride 0.9% 250 ML 250 ML IVPB SCH (09:00)
== END 2020-08-27 13:00 | disposition short-term general hospital (02) | DRG 870 ==
LOC: CSHERS 14:39 → CSHIMCU 18:54 → CSHTELE 08-21 16:00
PROVIDERS: ADMIT Internal Medicine Gastroenterology; ATTEND Hospitalist
PROC: 06L38CZ Occlusion of Esophageal Vein with Extraluminal Device, Via Natural or Artificial Opening Endoscopic (ICD-10-PCS; principal; 2020-08-11)
PROC: 30243K1 Transfusion of Nonautologous Frozen Plasma into Central Vein, Percutaneous Approach (ICD-10-PCS; 2020-08-11)
PROC: 05HM33Z Insertion of Infusion Device into Right Internal Jugular Vein, Percutaneous Approach (ICD-10-PCS; 2020-08-12)
PROC: B543ZZA Ultrasonography of Right Jugular Veins, Guidance (ICD-10-PCS; 2020-08-12)
PROC: 0DJ08ZZ Inspection of Upper Intestinal Tract, Via Natural or Artificial Opening Endoscopic (ICD-10-PCS; 2020-08-12)
PROC: 5A1955Z Respiratory Ventilation, Greater than 96 Consecutive Hours (ICD-10-PCS; 2020-08-12)
PROC: 30243K1 Transfusion of Nonautologous Frozen Plasma into Central Vein, Percutaneous Approach (ICD-10-PCS; 2020-08-12)
PROC: 30243N1 Transfusion of Nonautologous Red Blood Cells into Central Vein, Percutaneous Approach (ICD-10-PCS; 2020-08-12)
PROC: 0BH17EZ Insertion of Endotracheal Airway into Trachea, Via Natural or Artificial Opening (ICD-10-PCS; 2020-08-12)
PROC: 3E043XZ Introduction of Vasopressor into Central Vein, Percutaneous Approach (ICD-10-PCS; 2020-08-13)
PROC: 30243N1 Transfusion of Nonautologous Red Blood Cells into Central Vein, Percutaneous Approach (ICD-10-PCS; 2020-08-21)
PROC: 30243R1 Transfusion of Nonautologous Platelets into Central Vein, Percutaneous Approach (ICD-10-PCS; 2020-08-24)
DX: A41.9 Sepsis, unspecified organism (principal); I85.11 Secondary esophageal varices with bleeding; K72.00 Acute and subacute hepatic failure without coma; K76.7 Hepatorenal syndrome; J69.0 Pneumonitis due to inhalation of food and vomit; J96.01 Acute respiratory failure with hypoxia; R65.21 Severe sepsis with septic shock; E87.1 Hypo-osmolality and hyponatremia; D62 Acute posthemorrhagic anemia; N17.9 Acute kidney failure, unspecified; E87.2 Acidosis; Z68.42 Body mass index [BMI] 45.0-49.9, adult; J90 Pleural effusion, not elsewhere classified; K76.6 Portal hypertension; K70.30 Alcoholic cirrhosis of liver without ascites; F10.20 Alcohol dependence, uncomplicated; I95.9 Hypotension, unspecified; K72.90 Hepatic failure, unspecified without coma; E87.5 Hyperkalemia; E80.6 Other disorders of bilirubin metabolism; E03.9 Hypothyroidism, unspecified; Z20.822 Contact with and (suspected) exposure to COVID-19; D69.6 Thrombocytopenia, unspecified; N18.30 Chronic kidney disease, stage 3 unspecified; I12.9 Hypertensive chronic kidney disease with stage 1 through stage 4 chronic kidney disease, or unspecified chronic kidney disease; K21.9 Gastro-esophageal reflux disease without esophagitis; E66.9 Obesity, unspecified; Z51.5 Encounter for palliative care
CPT/HCPCS: 36415; 36416; 36430; 36600; 70450; 71045; 74018; 76770; 80048; 80053; 80202; 82140; 82805; 83690; 83735; 84100; 85025; 85610; 85730; 86704; 86706; 86803; 86850; 86900; 86901; 87070; 87205; 87340; 90935; 93005; 93010; 94002; 94003; 94640; 94760; 96365; 96374; 96375; C9113; G0257; J0696; J1720; J1815; J1940; J2001; J2060; J2354; J2543; J2704; J3010; J3370; J3411; J3430; J3480; J3490; J7042; J7050; J7070; J7611; P9016; P9035; P9047; P9059; Q0163; Q0167; U0002